=== PATIENT | female | born 1995 | race Caucasian/White ===

== ENCOUNTER → 2018-06-01 | Outpatient (REF) | payer OTHER, SELFPAY ==
[2018-06-01 18:02] LABS: BASO # 0.1 10^3/uL (0.0-0.2); BASO % 0.8 % (0.0-1.0); EOS # 0.2 10^3/uL (0.0-0.50); EOS % 2.5 % (0.0-3.0); HEMATOCRIT 37.2 % (36.0-47.0); HEMOGLOBIN 12.8 g/dl (12.0-15.5); IMMATURE GRANULOCYTE % 0.3 % (0-3.0); LYMPH % 32.7 % (24.0-44.0); MEAN CORPUSCULAR HEMOGLOBIN 29.6 pg (27.0-33.0); MEAN CORPUSCULAR HGB CONC 34.4 g/dl (32.0-36.5); MEAN CORPUSCULAR VOLUME 85.9 fl (80.0-96.0); MONO # 0.4 10^3/uL (0.0-0.8); MONO % 7.3 % (0.0-5.0); NEUTROPHILS # 3.4 10^3/uL (1.8-7.7); NEUTROPHILS % 56.4 % (36.0-66.0); PLATELET COUNT, AUTOMATED 360 10^3/uL (150-450); RED BLOOD COUNT 4.33 10^6/uL (4.00-5.40); WHITE BLOOD COUNT 6.1 10^3/uL (4.0-10.0)
[2018-06-01 22:18] LABS: ALBUMIN/GLOBULIN RATIO 1.38 (1.00-1.93); ALKALINE PHOSPHATASE 95 U/L (45-117); ALT/SGPT 18 U/L (12-78); ANION GAP 7 MEQ/L (8-16); AST/SGOT 18 U/L (7-37); BILIRUBIN,TOTAL 0.6 MG/DL (0.2-1.0); BLOOD UREA NITROGEN 8 MG/DL (7-18); CALCIUM LEVEL 8.7 MG/DL (8.5-10.1); CARBON DIOXIDE LEVEL 27 MEQ/L (21-32); CHLORIDE LEVEL 107 MEQ/L (98-107); CHOLESTEROL LEVEL 141 MG/DL (<200); CREATININE FOR GFR 0.82 MG/DL (0.55-1.30); GLOMERULAR FILTRATION RATE > 60.0 (>60); GLUCOSE, FASTING 91 MG/DL (70-100); HDL CHOLESTEROL 37 MG/DL (>40); LDL CHOLESTEROL 65 MG/DL (<100); NON-HDL-C 104 MG/DL; POTASSIUM SERUM 4.1 MEQ/L (3.5-5.1); SODIUM LEVEL 141 MEQ/L (136-145); TOTAL PROTEIN 6.9 GM/DL (6.4-8.2); TRIGLYCERIDES LEVEL 193 MG/DL (<150)
[2018-06-01 22:19] LABS: TESTOSTERONE 22 NG/DL (14-76)
[2018-06-01 23:12] LABS: GOLD SPEC TUBE RECIEVED
== END ==
LOC: M LAB REF 16:51
DX: F64.9 Gender identity disorder, unspecified (principal); Z79.890 Hormone replacement therapy
CPT/HCPCS: 84403

== ENCOUNTER → 2018-12-09 | Outpatient (REF) | payer OTHER ==
[~2018-12-09] MED LIST: LAMO25TA4 PO; QUET5TAB PO; TEST200I14 IM; VENL37.598 PO
[2018-12-09 18:45] LABS: BASO % 0.6 % (0.0-1.0); EOS # 0.2 10^3/uL (0.0-0.50); EOS % 2.2 % (0.0-3.0); HEMATOCRIT 38.7 % (42.0-52.0); HEMOGLOBIN 12.5 g/dl (13.5-17.5); LYMPH # 2.1 10^3/uL (1.5-6.5); LYMPH % 29.3 % (24.0-44.0); MEAN CORPUSCULAR HEMOGLOBIN 28.1 pg (27.0-33.0); MEAN CORPUSCULAR HGB CONC 32.3 g/dl (32.0-36.5); MONO # 0.8 10^3/uL (0.0-0.8); MONO % 10.4 % (0.0-5.0); NEUTROPHILS # 4.2 10^3/uL (1.8-7.7); NEUTROPHILS % 57.2 % (36.0-66.0); PLATELET COUNT, AUTOMATED 320 10^3/uL (150-450); RED BLOOD COUNT 4.45 10^6/uL (4.30-6.10); WHITE BLOOD COUNT 7.2 10^3/uL (4.0-10.0)
[2018-12-10 08:05] LABS: URINE PREG TEST NEGATIVE (NEGATIVE)
== END ==
LOC: M LAB REF 18:08
PROVIDERS: ATTEND Nurse Practitioner Adult Health
DX: Z01.818 Encounter for other preprocedural examination (principal)

== ENCOUNTER 2018-12-23 07:35 | Day surgery (SDC) | payer OTHER ==
[~2018-12-23] VITALS: Ht 165.1 cm; Wt 64.9 kg
[2018-12-23] VITALS (7 sets, daily range): BP systolic 108–115; BP diastolic 58–72
[2018-12-23] MEDS ORDERED: ceFAZolin SOD 1 GM in D5W MINI-BAG PLUS 50 ML IV SCH (08:15)
[2018-12-23] MEDS ORDERED: LR 1,000 ML IV ONE (08:15)
[2018-12-23] MEDS ORDERED: SCOPOLAMINE 1MG TRANSDERMAL PATCH TOP ONE (08:30)
[2018-12-23] MEDS ORDERED: LIDOCAINE 1% MDV 20ML VIAL As Ordered ONE (09:00)
[2018-12-23] MEDS ORDERED: EPINEPHrine INJ 1 MG/ML 1ML AMP As Ordered ONE (09:00)
[2018-12-23 09:03] LABS: URINE PREG TEST NEGATIVE (NEGATIVE)
[2018-12-23] MEDS ORDERED: BACITRACIN PWD 50,000 UNITS VIAL As Ordered ONE (09:07)
[2018-12-23] MEDS ORDERED: CIPROFLOXACIN 400 MG in APPROPRIATE DILUENT 1 EA IV ONE (09:15)
[2018-12-23] MEDS ORDERED: LIDOCAINE 2% INJ 100 MG/5 ML SDV (FOR ANES.) As Ordered ONE (09:48)
[2018-12-23] MEDS ORDERED: MIDAZOLAM INJ 2 MG/2 ML VIAL (J2250) As Ordered ONE (09:48)
[2018-12-23] MEDS ORDERED: PROPOFOL 200 MG/20 ML VIAL As Ordered ONE (09:48)
[2018-12-23] MEDS ORDERED: ROCURONIUM BROMIDE 50 MG/5 ML VIAL As Ordered ONE ×2 (09:48→12:06)
[2018-12-23] MEDS ORDERED: dexameTHASONE 4 MG/ML 1ML VIAL (J1100) As Ordered ONE (09:48)
[2018-12-23] MEDS ORDERED: fentaNYL 100 MCG/2 ML INJECTION (J3010) As Ordered ONE ×2 (09:48→14:13)
[2018-12-23] MEDS ORDERED: HYDROmorphone HCL 2 MG/ML 1ML VIAL (J1170) As Ordered ONE (09:51)
[2018-12-23] MEDS ORDERED: PHENYLephrine HCL 500 MCG/5 ML (100MCG/ML) SYRINGE (J2370) As Ordered ONE (10:41)
[2018-12-23] MEDS ORDERED: ACETAMINOPHEN 1000MG 100ML IV BTL (OFIRMEV) (J0131 PER 10MG) As Ordered ONE (11:08)
[2018-12-23] MEDS ORDERED: ONDANSETRON 4MG/2ML VIAL (J2405) As Ordered ONE ×2 (12:42→13:46)
[2018-12-23] MEDS ORDERED: SUGAMMADEX SODIUM 500 MG/5 ML VIAL (BRIDION) As Ordered ONE (12:42)
[2018-12-23] MEDS: LR 1,000 ML IV SCH (14:15)
[2018-12-23] MEDS: fentaNYL 100 MCG/2 ML INJECTION (J3010) IV PRN ×4 (14:15→14:30)
[2018-12-23] MEDS ORDERED: ONDANSETRON 4MG/2ML VIAL (J2405) IV PRN (14:15)
[2018-12-23] MEDS ORDERED: LR 1,000 ML IV SCH (14:15)
[2018-12-23] MEDS ORDERED: NORCO, ANEXSIA 5/325MG TABLET (HYDROcodone/ACETAMINOPHEN) PO PRN (14:15)
[2018-12-23] MEDS ORDERED: MORPHINE 4 MG/ML 1ML VIAL/SYRINGE (J2270) IV PRN (14:15)
--- NOTE | 2018-12-23 14:52 | POST-OPPD ---
Postoperative Procedure Note Date Of Procedure: December 23, 2018 PREOPERATIVE DIAGNOSIS: Gender dysphoria, bilateral breast hypertrophy POSTOPERATIVE DIAGNOSIS: same FINDINGS: Female breasts PROCEDURE: Chest masculinization procedure with bilateral subcutaneous mastectomies and button hole procedure for the nipple areolar reconstruction. SURGEON: Dr Nieto ANESTHESIA: General SPECIMENS: Right breast, Left breast, Liposuction fluid ESTIMATED BLOOD LOSS: 100cc REPLACED: none DRAINS: 10 mm KATE drains x 2 COMPLICATIONS: none POSTOPERATIVE CONDITION: Stable Dict. [id number] YADIEL NIETO DO December 23, 2018 13:30
[2018-12-23] MEDS: PERCOCET 5MG/325MG TAB PO PRN ×2 (15:49→20:19)
[2018-12-23] MEDS ORDERED: KETOROLAC 30 MG/ML VIAL (J1885) IV ONE (16:30)
--- NOTE | 2018-12-23 16:56 | RO ---
DATE OF PROCEDURE: 12/23/2018 PREPROCEDURE DIAGNOSIS: Gender dysphoria, bilateral breast hypertrophy. POSTPROCEDURE DIAGNOSIS: Gender dysphoria, bilateral breast hypertrophy. PROCEDURE: Chest masculinization procedure with bilateral subcutaneous mastectomies and button hole procedure for the nipple areolar reconstruction. SURGEON: Hoa Meza DO [employer] CROPS: ANESTHESIA: General. SPECIMENS SENT: Right and left breast and the liposuction fluid. BLOOD LOSS: 100 mL. Two 10 mm Sánchez-White drains were left in place. No complications. This is a 23-year-old transgender male who was seen in our office for top surgery. The patient has about C cup size of breasts, left is a little anguiano than the right. Patient wishes to have complete chest masculinization procedure. Options were discussed with the patient and the mother, discussed at length. He would like to have a minimal amount of scarring. We have opted to do subcuticular mastectomy with double incision type of procedure with possible button hole procedure if the vasculature will sustain. If not, the free nipple procedure would be done for the nipple areolar reconstruction. Patient understands the differences, states understanding and he is ready to proceed. DESCRIPTION OF PROCEDURE: On the day of surgery, he was marked in preoperative holding area and then he was brought into the operating room, placed in the supine position. Preoperative antibiotics were given. Sequential stockings placed on the lower calves. General anesthesia was induced. He was prepped and draped in the usual sterile fashion. We outlined our nipple areolar complex at 28 mm in diameter, and it was designed with a double incision with inferior pedicle which would be supplying our nipple areolar complex. So, we started our procedure by making a small stab incision on the lateral portion of the breast, the portion where it is going to be removed, and tumescent fluid was infiltrated into the upper pole of the breast as well as the lower pole of the breast. Then, Vaser liposuction was done for 3 minutes. After the Vaser liposuction, regular liposuction was done throughout the upper portion of the chest and on the lower portion of the breast. After that portion of the procedure was completed, a total of 300 mL of liposuction fluid was removed from the right side. Made superior portion with a double incision and then sharp dissection using electrocautery was carried out and turned superiorly by removing the rest of the glandular tissue from the superior pole of the breast until the pectoralis fascia, which was also fairly clean at this point. There was no bleeding encountered at this point. The lower incision was made. The inferior pedicle was de-epithelialized, and the nipple areolar complex had to be partially de-epithelialized to minimize the diameter to 28. Then, the side portion of the breast was resected on the right and on the left side, and also the pedicle was thinned out to about 2 cm of thickness. However, the nipple areolar complex was very well perfused at that point, so hemostasis was obtained using electrocautery and then the superior flap was then fitted with inferior edges of the incision, and we started our closure. #0 Vicryl was used initially on the level of the muscle layer and then #3-0 Monocryl for the subcu. The nipple areolar complex hole, the button hole, was marked preoperatively, 2.8 cm in diameter, so we made that incision and resected that portion of the button hole. The nipple areolar complex was brought in through the new hole on the flap and sutured in place with interrupted #3-0 Monocryl sutures, #4-0 Monocryl sutures as well, continuing our closure along the inferior incision. 10 mm Sánchez-White drain was placed through the incision, lateral portion, and sutured in place. Then, a V-Loc suture, #3-0 Monocryl with barbs was used for the completion of closure above the inferior incision. Then, we turned our attention to the left side and a mirror procedure was done. The nipple areolar complex was outlined at 28 mm in diameter and it was scored. Then, double incision was outlined and carried out. Before that, liposuction procedure portion was done, which started with a small stab incision, tumescent fluid infiltrating throughout the upper and the lower portion of the breast. Vaser liposuction was done for 3 minutes and then the regular liposuction was carried out, totaling 200 mL on the left side. Left side seems to be much more glandular, a lot less fat on that side, so continued with the superior portion of a double incision, undermined superiorly, the breast tissue was removed. The flap at this point was about 2 cm in thickness, which matches the other side. The inferior pedicle was designed and de-epithelialized. Inferior pedicle on both sides was 9 cm in width, so the excess tissue, medially and laterally, breast tissue was removed using electrocautery and hemostasis was obtained. The pedicle was thinned to 2 cm in thickness. Nipple areolar complex had good viable tissue at that point, and then the flaps were then brought in together and closed with interrupted #0 Vicryl. And the button hole measured out preoperatively, 28 mm in diameter, was excised, and the nipple areolar complex was brought into the new opening, sutured in place with #3-0 Monocryl sutures, #4-0 Monocryl and #5-0 plain running stitch. The closure of the inferior incision was continued with #0 Vicryl, #3-0 Monocryl. 10 mm Sánchez-White drain was placed in the lateral portion of the horizontal incision, and then final closure was done with a V-Loc suture. Xeroform placed on the nipples and Steri-Strips on the inferior portion of the incision. Xeroform and Steri-Strips were placed and a bulky dressing as well as wrapping of the patient's chest. The patient was extubated in the operating room without any difficulties, transferred to the recovery room in stable condition.
[2018-12-23] MEDS: ONDANSETRON 4MG/2ML VIAL (J2405) IV PRN ×2 (18:54→23:23)
[2018-12-23] MEDS ORDERED: CIPROFLOXACIN 400 MG in APPROPRIATE DILUENT 1 EA IV SCH (22:00)
[2018-12-24] VITALS: BP 105/55
[2018-12-24] MEDS: LR 1,000 ML IV SCH (01:34)
[2018-12-24 04:00] VITALS: BP 96/53
[2018-12-24] MEDS: PERCOCET 5MG/325MG TAB PO PRN (04:38)
--- NOTE | 2018-12-24 08:52 | IPNPDOC ---
Subjective General Date/Time Seen The patient was seen on 12/24/18. Subject Chief Complaint/History The patient is a 23-year-old male admitted with a reason for visit of Breast Hypertrophy, Gender Identity Disorder. Admitted for observation for pain and nausea control. Doing well this morning. Current Medications Current Medications Current Medications Acetaminophen/ Hydrocodone Bitart (Coyote, Anexsia 5/325) 1 tab ASDIRECTED PRN PO MILD/MODERATE PAIN (PS 1-7); Start 12/23/18 at 14:15; Stop 12/23/18 at 15:15; Status DC Cefazolin Sodium 1 gm/Dextrose 50 ml @ 100 mls/hr Q8H IV ; Start 12/23/18 at 08:15; Status Cancel Ciprofloxacin 400 mg/IV Miscellaneous Supplies 200 ml @ 200 mls/hr Q12H IV Last administered on 12/23/18at 22:42; Start 12/23/18 at 22:00; Stop 12/23/18 at 22:59; Status DC Fentanyl Citrate (Sublimaze) 25 mcg Q5MP PRN IV MODERATE PAIN (PS 4-7) Last administered on 12/23/18at 14:30; Start 12/23/18 at 14:15; Stop 12/23/18 at 14:46; Status DC Lactated Ringer's 1,000 ml @ 75 mls/hr [id number] IV Last administered on 12/24/18at 01:34; Start 12/23/18 at 14:15 Lactated Ringer's 1,000 ml @ 100 mls/hr Q10H IV ; Start 12/23/18 at 14:15; Stop 12/23/18 at 15:15; Status DC Morphine Sulfate (Morphine Sulfate Inj) 4 mg Q4H PRN IV SEVERE PAIN Last administered on 12/23/18at 22:51; Start 12/23/18 at 14:15 Ondansetron HCl (ZOFRAN INJection) 4 mg Q4H PRN IV NAUSEA OR VOMITING Last administered on 12/23/18at 23:23; Start 12/23/18 at 14:15 Ondansetron HCl (ZOFRAN INJection) 4 mg Q4HP PRN IV NAUSEA OR VOMITING Last administered on 12/23/18at 13:48; Start 12/23/18 at 14:15; Stop 12/23/18 at 15:15; Status DC Oxycodone/ Acetaminophen (Percocet 5mg/ 325mg Tablet) 1 tab Q4H PRN PO MILD PAIN Last administered on 12/24/18at 04:38; Start 12/23/18 at 14:45 Allergies Coded Allergies: Penicillins (Verified Allergy, Intermediate, hives, 12/23/18) erythromycin base (Verified Allergy, Intermediate, HIVES, 12/23/18) Objective Physical Examination Examination GENERAL APPEARANCE:Patient seen, laying in bed, awake, alert, and oriented. Comfortable, in no acute distress. SKIN: Warm and moist. Chest: All incision intact. KATE drains serosanguinous. Left Breast with slightly more edema than right. NAC with some ecchymosis. Both NAC warm. HEENT: Normocephalic, atraumatic. Gazelle palpebral conjunctiva, anicteric scler ae. Lips and mucosa appear moist. NECK: Supple, no thyromegaly. No obvious jugular venous distention. LUNGS: Clear to auscultation bilaterally. No wheezing appreciated. HEART: No chest wall abnormalities. Regular rate and rhythm with no murmurs appreciated. Vital Signs Vital Signs Date Time Temp Pulse Resp B/P (MAP) Pulse Ox O2 Delivery O2 Flow Rate FiO2 12/24/18 05:10 16 12/24/18 04:00 98.8 75 96/53 (67) 100 2.0 I&Os I&O- Last 24 Hours up to 6 AM 12/24/18 05:59 Intake Total 2540 ml Output Total 925 ml Balance 1615 ml A-FIB/CHADSVASC A-FIB History Current/History of A-Fib/PAF?: No Current Oral Anticoagulant The: No Impression S/p chest masculinization procedure. POD 1. Doing well Stable for discharge Instructions given to patient and mother. Dressings changed Pain control F/up plastic surgery Thursday. Plan / VTE VTE Prophylaxis Ordered?: Yes YADIEL NIETO DO December 24, 2018 08:52
[2018-12-24] MEDS ORDERED: ONDA4TAB5 PO (08:56)
[2018-12-24] MEDS ORDERED: PERCOCET PO (08:56)
[2018-12-24 10:00] VITALS: BP 100/50
== END 2018-12-24 12:35 | disposition home or self-care (01) ==
LOC: M SDC 07:35 → EDSEX 08:50 → M MS5PR 15:05 → M SDC 12-24 12:35
PROVIDERS: ATTEND Plastic Surgery Surgery of the Hand
DX: F64.9 Gender identity disorder, unspecified (principal); N62 Hypertrophy of breast; F41.9 Anxiety disorder, unspecified; F32.9 Major depressive disorder, single episode, unspecified; G47.9 Sleep disorder, unspecified; Z87.891 Personal history of nicotine dependence; Z88.0 Allergy status to penicillin; Z88.1 Allergy status to other antibiotic agents; Z79.899 Other long term (current) drug therapy
CPT/HCPCS: 19304; 19350; 84703; 88300; 88305; J0131; J0744; J1100; J1170; J1885; J2250; J2270; J2370; J2405; J3010

== ENCOUNTER 2018-12-26 23:02 | Emergency (ER) | payer OTHER ==
[~2018-12-26] VITALS: Ht 165.1 cm; Wt 63.6 kg
[~2018-12-26 23:02] MED LIST changes: +ONDA4TAB5 PO; +PERCOCET PO
[2018-12-26] MEDS ORDERED: NITR2OI (23:13)
[2018-12-26] MEDS ORDERED: ONDANSETRON 4MG/2ML VIAL (J2405) IV ONE (23:45)
[2018-12-27] MEDS ORDERED: NS 1,000 ML IV ONE (00:15)
[2018-12-27 00:39] LABS: BASO % 0.3 % (0.0-1.0); EOS % 0.3 % (0.0-3.0); HEMATOCRIT 39.3 % (42.0-52.0); HEMOGLOBIN 13.4 g/dl (13.5-17.5); LYMPH # 1.5 10^3/uL (1.5-6.5); LYMPH % 14.1 % (24.0-44.0); MEAN CORPUSCULAR HGB CONC 34.1 g/dl (32.0-36.5); MEAN CORPUSCULAR VOLUME 85.1 fl (80.0-96.0); MONO # 0.5 10^3/uL (0.0-0.8); MONO % 4.6 % (0.0-5.0); NEUTROPHILS # 8.3 10^3/uL (1.8-7.7); NEUTROPHILS % 80.4 % (36.0-66.0); PLATELET COUNT, AUTOMATED 322 10^3/uL (150-450); RED BLOOD COUNT 4.62 10^6/uL (4.30-6.10); WHITE BLOOD COUNT 10.3 10^3/uL (4.0-10.0)
[2018-12-27 01:15] LABS: ALBUMIN 3.7 GM/DL (3.2-5.2); BILIRUBIN,DIRECT 0.3 MG/DL (0.0-0.2); BILIRUBIN,TOTAL 1.3 MG/DL (0.2-1.0); TOTAL PROTEIN 7.5 GM/DL (6.4-8.2)
[2018-12-27] MEDS ORDERED: COLA100C5 PO (01:30)
[2018-12-27 01:53] VITALS: BP 113/63
--- NOTE | 2018-12-27 05:03 | REP ---
Clinical: Postoperative pain. Evaluate for perforation. Technique: Upright view of the chest with supine and upright views of the abdomen and pelvis. Findings: Frontal upright view of the chest demonstrates postsurgical changes involving the bilateral chest. No acute cardiopulmonary process or free air below the diaphragm to suspect pneumoperitoneum. Supine and upright views of the abdomen and pelvis demonstrate nonspecific bowel gas pattern without obstruction or perforation. No organomegaly. No abnormal calcifications. Skeletal structures normal for age. Impression: Nonspecific bowel gas pattern. Electronically Signed by Hank Riddle MD 12/27/2018 04:54 A
== END 2018-12-27 01:49 | disposition home or self-care (01) ==
LOC: M ED 23:02
DX: K59.00 Constipation, unspecified (principal); T40.2X5A Adverse effect of other opioids, initial encounter; R11.2 Nausea with vomiting, unspecified; Z90.13 Acquired absence of bilateral breasts and nipples; F64.9 Gender identity disorder, unspecified; F39 Unspecified mood [affective] disorder; F41.9 Anxiety disorder, unspecified; F32.9 Major depressive disorder, single episode, unspecified; Z79.891 Long term (current) use of opiate analgesic; Z79.890 Hormone replacement therapy; Z79.899 Other long term (current) drug therapy; Z88.0 Allergy status to penicillin; Z88.1 Allergy status to other antibiotic agents
CPT/HCPCS: 74021; 80047; 80076; 83690; 85025; 96361; 96374; 99284; J2405